=== PATIENT | male | born 1995 | race Two or more races ===

== ENCOUNTER 2019-02-23 18:11 | Emergency (ER) | payer SELFPAY ==
[~2019-02-23] VITALS: Ht 182.9 cm; Wt 102.1 kg
[2019-02-23] MEDS ORDERED: SODIUM CHLORIDE 0.9% 1,000 ML IV ONE (18:30)
[2019-02-23] MEDS ORDERED: LORazepam 2MG/ML-1ML VIAL IV ONE (18:30)
[2019-02-23 18:49] LABS: Basophils # (auto) 0.1 uL; Basophils % (auto) 0.6 % (0.0-2.0); Eosinophils # (auto) 0.1 uL; Eosinophils % (auto) 0.6 % (0.0-7.0); Hematocrit 49.4 % (41.0-53.0); Lymphocytes # (auto) 3.7 uL; Lymphocytes % (auto) 28.8 % (10.0-50.0); Mean Corpuscular Hemoglobin 31.3 pg (28.0-32.0); Mean Corpuscular Hgb Conc. 34.3 g/dL (32.0-36.0); Mean Corpuscular Volume 91.2 fL (80.0-100.0); Monocytes # (auto) 0.9 uL; Monocytes % (auto) 7.3 % (0.0-12.0); Neutrophils # (auto) 8.1 uL; Neutrophils % (auto) 62.7 % (37.0-80.0); Nucleated Red Blood Cells % 0.1 %; Platelet Count (auto) 172 10^3/uL (140-450); Red Blood Cells 5.42 10^6/uL (4.5-5.90); White Blood Cell 12.9 10^3/uL (4.4-10.8)
[2019-02-23 19:09] LABS: Albumin 4.1 g/dL (3.4-5.0); Calcium 8.8 mg/dL (8.5-10.1); Potassium 3.4 mmol/L (3.5-5.1)
[2019-02-23 19:21] LABS: Bilirubin, Total 0.8 mg/dL (0.2-1.0)
[2019-02-23 20:10] LABS: Amphetamine Screen, Urine NEGATIVE (NEGATIVE); Barbiturate Scree,Urine NEGATIVE (NEGATIVE); Benzodiazephine Screen, Urine NEGATIVE (NEGATIVE); Cannabinoid Screen, Urine NEGATIVE (NEGATIVE); Cocaine Screen, Urine POSITIVE (NEGATIVE); Opiate Scree,Urine NEGATIVE (NEGATIVE)
[2019-02-23 20:18] LABS: Alcohol, Urine < 3.0 mg/dL (0-5); Phencyclidine Screen, Urine NEGATIVE (NEGATIVE)
[2019-02-23 21:59] VITALS: BP 131/72
== END 2019-02-23 22:32 | disposition home or self-care (01) ==
LOC: ER 18:15
DX: F14.10 Cocaine abuse, uncomplicated (principal); R00.2 Palpitations; R11.2 Nausea with vomiting, unspecified
CPT/HCPCS: 36415; 80053; 80307; 85025; 93005; 96374; 99284; J2060; J7030

== ENCOUNTER 2023-04-05 00:28 | Emergency (ER) | payer BC, OTHER ==
[~2023-04-05] VITALS: Ht 182.9 cm; Wt 102.0 kg
[2023-04-05 01:40] LABS: Urine WBC None Seen /hpf (0 - 3)
[2023-04-05 01:57] LABS: Urine Bacteria NONE SEEN /hpf (None Seen); Urine Blood Negative /uL (Negative); Urine Clarity Clear (Clear); Urine Color Colorless (Yellow); Urine Protein, UAD Negative (Negative); Urine Specific Gravity 1.023 (1.001-1.035); Urine Urobilinogen Normal (Negative)
[2023-04-05] MEDS ORDERED: IBU600T PO (04:05)
[2023-04-05] MEDS ORDERED: HYDROcodone-ACET 10/325MG TAB PO ONE (04:15)
[2023-04-05 06:08] VITALS: BP 131/81; PULSE 69; RESP 16; TEMP 97.6; O2SAT 98
== END 2023-04-05 06:08 | disposition home or self-care (01) ==
LOC: ER 00:28
DX: M79.18 Myalgia, other site (principal); F17.210 Nicotine dependence, cigarettes, uncomplicated; F14.10 Cocaine abuse, uncomplicated
CPT/HCPCS: 74176; 81001